=== PATIENT | male | born 1945 ===

== ENCOUNTER 2024-04-17 10:48 | Outpatient (AMB) | payer MEDICARE, SELFPAY ==
--- NOTE | 2024-04-17 11:34 | AM.OFFWIN_ITS ---
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 Patient Tobacco Use Status: Former Tobacco user Accompanied by: Spouse Allergies No Known Allergies Allergy (Verified 04/17/24 11:36) Do you need a note to return to daycare/school/sports/work: No HPI TECHNICAL ADVISOR pain on right knee HPI Details This note is constructed using voice recognition software. While every effort has been made to ensure accuracy, it project manager errors may have been included. The patient is a 78 year old male who presents to the clinic today with right knee pain for the past 2 years, worsened over the past week. His notes that he had been helping his son get things in and out of the boat, and he had been up and down on a ladder which she thinks was the triggering factor to the pain. 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 They do have an appointment pending with Orthopedics in 1 month in [place], which they go to in the winter. He denies any fall, or trauma to the area, he has had meniscal surgery x2 to that knee. He denies redness and warmth. He notes he has been using crutches at home due to the pain, however there are several family members that live in the area and 1 of them dropped off a walker this morning for them which he is using today. [facility] Social History Patient Tobacco Use Status: Former Tobacco user Review of Systems Const All systems reviewed & are unremarkable except as noted in HPI and below Physical Exam Vital Signs: Last Vital Signs Pulse 61 04/17/24 11:35 BP 120/70 04/17/24 11:35 Pulse Ox 96 04/17/24 11:35 Oxygen Delivery Method Room Air 04/17/24 11:35 Const General: cooperative, healthy appearing, comfortable, no acute distress and alert Orientation/consciousness: patient oriented x3 Limitations: no limitations Skin General skin exam: no rashes or lesions noted, elasticity normal and turgor normal Neuro General: patient oriented x3 Extrem Other: No areas of tenderness to palpation. General: Yes normal to inspection, Yes full ROM, Yes capillary refill normal and Yes normal exam except as noted Psych Appearance: grossly normal Mental Status: mental status grossly normal Speech and movement: Normal speech and movement present Affect: normal affect Assessment & Plan Assessment & Plan (1) Right knee pain: Code(s): M25.561 - Pain in right knee Qualifiers: Chronicity: unspecified Qualified Code(s): M25.561 - Pain in right knee Plan: Acute on chronic right knee pain. Based on the fact that patient has orthopedic referral pending and no acute trauma, we elected to avoid imaging at this time as there is intended imaging with that visit. Assisted to adjust walker to appropriate height for patient. Advised patient to use this as needed to help reduce the risk of falls. Evaluated patient's technique and use. Short burst of prednisone prescribed for anti-inflammatory effects. Side effects of medication reviewed with patient. Advised follow up with worsening or failure to resolve. Medications: New prednisone 40 mg (2 x 20 mg) PO DAILY 3 days 6 tabs 0RF Coding Level of Care Code Est Pt Level 3 (48130) Diagnoses Right knee pain, unspecified chronicity M25.561 Chronicity: unspecified
[2024-04-17 11:35] VITALS: BP 120/70; PULSE 61; O2SAT 96
== END 2024-04-17 11:57 | disposition home or self-care (01) ==
PROVIDERS: Visit Provider Registered Nurse
DX: M25.561 Pain in right knee (principal)

== ENCOUNTER → 2024-04-17 10:48 | Outpatient (BNVA) | payer OTHER, SELFPAY | DX: M25.561 Pain in right knee (principal); G89.29 Other chronic pain | CPT/HCPCS: 99212 ==